=== PATIENT | female | born 1980 | race Caucasian/White ===

== ENCOUNTER 2017-02-11 14:45 | Emergency (ER) | payer MEDICAID ==
[~2017-02-11] VITALS: Ht 162.6 cm; Wt 75.0 kg
[~2017-02-11 14:45] MED LIST: IBUP800T25 PO; LORA-441 PO; PREN-29 PO
[2017-02-11 14:47] VITALS: Ht 162.6 cm; Wt 75.0 kg
[2017-02-11] MEDS ORDERED: LIDOCAINE 1% (MDV) 20 ML INJ SC ONE (16:00)
--- NOTE | 2017-02-11 16:25 | RADRPT ---
PROCEDURE: XR Hand. CLINICAL INDICATION: Laceration TECHNIQUE: Three views of the right hand were obtained. COMPARISON: No prior studies are available for comparison. FINDINGS: There is no acute osseous or articular abnormality. No evidence for fracture. Bone mineral density is preserved. The articular surfaces are smooth without evidence of marginal erosions. The soft tis sues are intact without evidence of radiopaque foreign body. IMPRESSION: 1. No acute osseous abnormality or radiopaque foreign body. RPTAT: TT .Bo Desir MD, Date Time Electronically viewed and signed by .Bo Desir MD, on 02/11/2017 16:24 .d/
--- NOTE | 2017-02-11 16:25 | ERD ---
ER Documentation Chief Complaint Date/Time DATE: 02/11/17 TIME: 16:22 Chief Complaint lac on r hand x 30 minutes cut on broken plate HPI 36-year-old female presents with a laceration to the palmar aspect of her right hand from a broken ceramic plate. She complains of sharp pain that is localized , with minimal bleeding. She has no weakness, paresthesias. Patient does not recall her last tetanus shot. ROS All systems reviewed and are negative except as per history of present illness. Medications Home Meds Active Scripts Ibuprofen* (Ibuprofen*) 800 Mg Tab, 800 MG PO Q6, #20 TAB 0 Refills Prov:VALARIE LANCASTER MD 02/13/15 Reported Medications Lorazepam* (Ativan*) 0.5 Mg Tablet, 0.5 MG PO HS Y for ANXIETY, TAB 02/11/15 Vit-Fe Fumarate-FA* (Chun Tablet*) 1 Tab Tablet, 1 TAB PO DAILY, TAB 02/11/15 Allergies Allergies: Coded Allergies: No Known Drug Allergies (Verified Allergy, Mild, 02/11/17) PMhx/Soc History of Surgery: No Anesthesia Reaction: No Hx Neurological Disorder: No Hx Respiratory Disorders: No Hx Cardiac Disorders: No Hx Psychiatric Problems: Yes (5150 in 2010) Hx Miscellaneous Medical Probl: No Hx Alcohol Use: Yes (6 BEERS 3 TIMES A WEEK) Hx Substance Use: Yes Hx Tobacco Use: No Physical Exam Vitals Vital Signs Date Time Temp Pulse Resp B/P Pulse Ox O2 Delivery O2 Flow Rate FiO2 02/11/17 14:47 98.0 83 18 138/65 98 Physical Exam General: Well-developed, well-nourished. The patient appears in no acute distress. HEENT: Head is normocephalic, atraumatic. No scleral icterus. Neck: Supple. Nontender. Lungs: Clear to auscultation. Normal air movement. Heart: Regular rate and rhythm. S1 and S2 are normal. No murmurs, gallops, or rubs. Abdomen: Nondistended. Extremities: No clubbing or cyanosis. Moving extremities x 4. No weakness. Neurologic: Alert and oriented 3. No focal deficits. Normal speech and gait. Skin: 2 cm V-shaped laceration there is no active bleeding, no foreign body seen. She is able to make a fist. Results 24 hrs Current Medications Medications (Trade) Dose Ordered Sig/Marialuisa Route PRN Reason Start Time Stop Time Status Last Admin Dose Admin Lidocaine (Xylocaine 1% (Mdv) 20 ml) 20 ml ONCE ONCE SC 02/11/17 16:00 02/11/17 16:01 DC DIAGNOSTIC IMAGING REPORT Patient: JUAN ROSEN : 1980 Age: 36 Sex: F MR #: [id number] DOS: 02/11/17 1544 Ordering MD: PAPITO RANDALL PA-C Location: [facility] Room/Bed: PROCEDURE: XR Hand. CLINICAL INDICATION: Laceration TECHNIQUE: Three views of the right hand were obtained. COMPARISON: No prior studies are available for comparison. FINDINGS: There is no acute osseous or articular abnormality. No evidence for fracture. Bone mineral density is preserved. The articular surfaces are smooth without evidence of marginal erosions. The soft tissues are intact without evidence of radiopaque foreign body. IMPRESSION: 1. No acute osseous abnormality or radiopaque foreign body. RPTAT: TT .Bo Desir MD MD Date Time Electronically viewed and signed by .Bo Desir MD, MD on 02/11/2017 16:24 .d/ CC: PAPITO RANDALL PA-C Procedures/MDM Laceration Repair by me: Patient was verbally consented Anesthesia: 1% lidocaine locally Location: Right palm Tendon/Joint/Nerves: No injury Foreign body: None detected after copious irrigation and exploration Technique: Simple Interrupted Sutures 4 using Ethilon Complexity: No subcutaneous sutures/mucosal repair/ edge excision Post Closure Length: 2 cm Patient's bleeding was easily controlled in the department and there is no indication of anemia. No evidence of compartment syndrome, neurologic injury, vascular injury, open joint, tendon laceration, or foreign body. Patient is appropriate for outpatient follow up. 48 hour wound check. Scar minimization instructions given. Tdap was updated. MDM: 36-year-old female presents with a laceration to the palm of her right hand from a ceramic plate, no evidence of foreign body, tendon injury, evidence of arterial bleeding. Laceration was closed without any complications, stable for discharge. Departure Diagnosis: Primary Impression: Laceration Condition: Good PAPITO RANDALL PA-C Feb 11, 2017 16:25
== END 2017-02-11 16:56 | disposition home or self-care (01) ==
LOC: FTE 14:45
DX: S61.411A Laceration without foreign body of right hand, initial encounter (principal); W26.8XXA Contact with other sharp object(s), not elsewhere classified, initial encounter; Y92.9 Unspecified place or not applicable
CPT/HCPCS: 12001; 73130; Z7502; Z7610